=== PATIENT | male | born 1960 | race Caucasian/White ===

== ENCOUNTER → 2017-09-08 | Outpatient (CLI) | payer BC ==
[2017-09-08 18:25] LABS: BASO # 0.1 10^3/uL (0.0-0.2); BASO % 0.7 % (0.0-1.0); EOS # 0.2 10^3/uL (0.0-0.50); EOS % 2.8 % (0.0-3.0); HEMATOCRIT 48.5 % (42.0-52.0); IMMATURE GRANULOCYTE % 0.4 % (0-3.0); LYMPH # 1.6 10^3/uL (1.5-4.5); LYMPH % 23.5 % (24.0-44.0); MEAN CORPUSCULAR HEMOGLOBIN 31.3 pg (27.0-33.0); MEAN CORPUSCULAR VOLUME 94.7 fl (80.0-96.0); MONO # 1.3 10^3/uL (0.0-0.8); MONO % 19.5 % (0.0-5.0); NEUTROPHILS # 3.6 10^3/uL (1.8-7.7); NEUTROPHILS % 53.1 % (36.0-66.0); PLATELET COUNT, AUTOMATED 210 10^3/uL (150-450); RED BLOOD COUNT 5.12 10^6/uL (4.30-6.10); RED CELL DISTRIBUTION WIDTH 12.1 % (11.5-14.5); WHITE BLOOD COUNT 6.8 10^3/uL (4.0-10.0)
== END ==
LOC: M WUC 14:43
DX: R05 Cough (principal)
CPT/HCPCS: 85025

== ENCOUNTER → 2019-06-10 | Outpatient (REF) | payer BC | LOC: M SFHCLERA 16:52 | PROVIDERS: ATTEND Physician Assistant | DX: R05 Cough (principal) ==

== ENCOUNTER → 2019-06-10 | Outpatient (CLI) | payer BC ==
--- NOTE | 2019-06-11 08:11 | REP ---
TWO-VIEW CHEST: REASON FOR EXAM: Cough. COMPARISON: 09/08/2017 FINDINGS: The superior mediastinal structures are midline. The cardiac silhouette is unremarkable in size, shape, and position. The diaphragmatic surfaces of the lungs are regular, and the costophrenic angles are clear. The pulmonary tyler are clear. The imaged osseous structures are intact. IMPRESSION: There is no acute cardiopulmonary disease. No change from the prior exam. Electronically Signed by Camden Rg DO 06/11/2019 12:10 P
--- NOTE | 2019-06-11 08:12 | REP ---
REASON: Cough and pain. No trauma. Four views of the right ribs show no acute fracture or destructive osseous lesion. Electronically Signed by Camden Rg DO 06/11/2019 12:10 P
== END ==
LOC: M LRY 15:49
PROVIDERS: ATTEND Physician Assistant
DX: R05 Cough (principal)

== ENCOUNTER → 2019-07-02 | Outpatient (CLI) | payer BC ==
--- NOTE | 2019-07-02 16:02 | REP ---
Chest x-ray: Two views. History: Cough . Comparison study: June 10, 2019 . Findings: The lungs are well inflated and free of infiltrate. The pleural angles are sharp. The heart size is normal. Pulmonary vasculature is not increased. No significant bony abnormality is seen. Impression: Negative chest x-ray. Electronically Signed by Yobani Rousseau MD 07/02/2019 03:54 P
== END ==
LOC: M LRY 15:32
PROVIDERS: ATTEND Physician Assistant
DX: R05 Cough (principal)

== ENCOUNTER 2020-04-12 18:14 | Emergency (ER) | payer BC ==
[~2020-04-12] VITALS: Ht 180.3 cm; Wt 118.2 kg
[2020-04-12] MEDS ORDERED: ACET-683 PO (18:47)
[2020-04-12] MEDS ORDERED: PERCOCET 5MG/325MG TAB PO ONE (19:30)
--- NOTE | 2020-04-12 20:12 | REPVR ---
PROCEDURE INFORMATION: Exam: CT Cervical Spine Without Contrast Exam date and time: 04/12/2020 7:41 PM Age: 59 years old Clinical indication: Injury or trauma; Fall; Initial encounter; Blunt trauma; Additional info: Fall 6' TECHNIQUE: Imaging protocol: Computed tomography images of the cervical spine without contrast. Radiation optimization: All CT scans at this facility use at least one of these dose optimization techniques: automated exposure control; mA and/or kV adjustment per patient size (includes targeted exams where dose is matched to clinical indication); or iterative reconstruction. COMPARISON: No relevant prior studies available. FINDINGS: Vertebrae: No acute fracture. Normal alignment. Discs/Spinal canal/Neural foramina: Multilevel degenerative disc disease, most prominent at the C5-C6 level. Large disc osteophyte complex at C5-C6 with moderate stenosis. Soft tissues: Unremarkable. Lungs: Lung apices are normal. IMPRESSION: No acute abnormality. Electronically signed by: Darrick Wagner On 04/12/2020 20:12:16 PM
--- NOTE | 2020-04-12 20:14 | REPVR ---
PROCEDURE INFORMATION: Exam: CT Head Without Contrast Exam date and time: 04/12/2020 7:41 PM Age: 59 years old Clinical indication: Injury or trauma; Fall; Initial encounter; Blunt trauma (contusions or hematomas); Additional info: Fall 6' TECHNIQUE: Imaging protocol: Computed tomography of the head without contrast. Radiation optimization: All CT scans at this facility use at least one of these dose optimization techniques: automated exposure control; mA and/or kV adjustment per patient size (includes targeted exams where dose is matched to clinical indication); or iterative reconstruction. COMPARISON: No relevant prior studies available. FINDINGS: Brain: Normal. No hemorrhage. Unremarkable white matter. No mass effect. Cerebral ventricles: No ventriculomegaly. Bones/joints: Unremarkable. No acute fracture. Paranasal sinuses: Visualized sinuses are unremarkable. No fluid levels. Mastoid air cells: Visualized mastoid air cells are well aerated. Soft tissues: Unremarkable. IMPRESSION: No acute intracranial abnormality. Electronically signed by: Darrick Wagner On 04/12/2020 20:14:22 PM
--- NOTE | 2020-04-12 20:16 | REPVR ---
PROCEDURE INFORMATION: Exam: XR Left Ankle Exam date and time: 04/12/2020 7:57 PM Age: 59 years old Clinical indication: Pain; Ankle; Left; Additional info: Fall 6' TECHNIQUE: Imaging protocol: XR Left ankle. Views: 3 or more views. COMPARISON: No relevant prior studies available. FINDINGS: Bones/joints: Diffuse demineralization of the bones. No acute fracture. Soft tissues: Edema soft tissue edema of the ankle. IMPRESSION: Soft tissue edema of the ankle. No acute fracture. Electronically signed by: Darrick Wagner On 04/12/2020 20:16:04 PM
--- NOTE | 2020-04-12 20:19 | REPVR ---
PROCEDURE INFORMATION: Exam: XR Left Tibia and Fibula Exam date and time: 04/12/2020 7:57 PM Age: 59 years old Clinical indication: Pain; Lower leg; Left; Additional info: Fall 6' TECHNIQUE: Imaging protocol: XR Left tibia and fibula. Views: 2 views. COMPARISON: No relevant prior studies available. FINDINGS: Bones/joints: Normal. Soft tissues: Normal. IMPRESSION: No acute findings. Electronically signed by: Darrick Wagner On 04/12/2020 20:19:01 PM
--- NOTE | 2020-04-12 20:20 | REPVR ---
PROCEDURE INFORMATION: Exam: XR Left Shoulder Exam date and time: 04/12/2020 7:57 PM Age: 59 years old Clinical indication: Pain; Shoulder; Left; Additional info: Fall 6' TECHNIQUE: Imaging protocol: XR Left shoulder. Views: 2 or more views. COMPARISON: No relevant prior studies available. FINDINGS: Bones/joints: No acute fracture. No dislocation. Lungs: Visualized lung is unremarkable. Soft tissues: Normal. IMPRESSION: No acute abnormality. Electronically signed by: Darrick Wagner On 04/12/2020 20:20:05 PM
[2020-04-12] MEDS ORDERED: CYCL-707 PO (20:49)
[2020-04-12] MEDS ORDERED: IBUP-1022 PO (20:49)
[2020-04-12 21:13] VITALS: BP 161/83
== END 2020-04-12 21:15 | disposition home or self-care (01) ==
LOC: M ED 18:14
DX: T14.8XXA Other injury of unspecified body region, initial encounter (principal); S93.402A Sprain of unspecified ligament of left ankle, initial encounter; W11.XXXA Fall on and from ladder, initial encounter; Y92.098 Other place in other non-institutional residence as the place of occurrence of the external cause; Z88.1 Allergy status to other antibiotic agents